=== PATIENT | female | born 1985 | race Two or more races ===

== ENCOUNTER 2024-10-14 14:53 | Emergency (ER) | payer MEDICAID, SELFPAY ==
[2024-10-14 14:54] VITALS: BMI 36.6
[2024-10-14 15:27] VITALS: BP 162/98; PULSE 83; RESP 20; TEMP 37.3; O2SAT 99
--- NOTE | 2024-10-14 15:36 | EDRME_ITS ---
Rapid Medical Screening Exam RME Arrival date/time: 10/14/24 14:53 39-year-old female with a history of hypertension, presents to the emergency room with a chief complaint of right lower quadrant and epigastric abdominal pain x 2 days I have greeted and performed a focused initial assessment of this patient. A c omprehensive ED assessment and evaluation of the patient, analysis of all test results, and completion of the medical decision making process will be conducted by additional ED providers. Chief Complaint: Abdominal Pain Vital signs: Vital Signs Temperature 99.2 F 10/14/24 15:27 Pulse Rate 83 10/14/24 15:27 Respiratory Rate 20 10/14/24 15:27 Blood Pressure 162/98 H 10/14/24 15:27 Pulse Oximetry (%) 99 10/14/24 15:27 Oxygen Delivery Method Room Air 10/14/24 15:27 Vital signs reviewed by provider: Yes
--- NOTE | 2024-10-14 15:36 | XR_ITS ---
Examination: CT abdomen and pelvis without contrast. Coronal 3-D reconstructions. Sagittal 2-D reconstructions. Date and time of exam:October 14, 2024 1729 hours INDICATIONS: Epigastric pain beginning 3 days ago CTDI: vol (mGy): 12.7 DLP: (mGycm): 638 Technique: Axial images of the abdomen have been obtained, 3 mm slice thickness Intravenous contrast material has not been administered. Low dose protocols were performed. One or more of the following dose reduction techniques were used; automated exposure control, adjustment of the mA and/or KV according to patient size, use of iterative reconstruction technique. Findings: 6 mm pulmonary nodule pleural-based right lower lobe No visualized reverse bony lesion No gallstones No pancreatic mass or peripancreatic edema Mild nodular thickening of the left adrenal gland 2 mm lower pole nonobstructing left renal calculus Normal appendix Inflammatory change with multiple lymph nodes in the pericecal region, axial image 108 24 mm umbilical hernia No bowel obstruction No diverticulitis Anteverted uterus with enlarged fundus Contracted urinary bladder with mild urinary bladder wall thickening IMPRESSION: 2 mm lower pole nonobstructing left renal calculus Normal appendix Multiple pericecal lymph nodes with inflammatory change around the cecum, differential would include inflammatory disease such as Crohn's disease ulcerative colitis, underlying early cecal tumor not excluded, recommend colonoscopy follow-up Mild cystitis pattern
[2024-10-14 16:02] LABS: Basophils % (Auto) 0 % (0-2.5); Eosinophils % (Auto) 0 % (0-10); Hematocrit 24.7 % (36.0-46.0); Immature Granulocytes % (Auto) 1 % (0-0); Immature Granulocytes Auto 0.04 Thou/mm3 (0.00-0.00); Lymphocytes # (Auto) 1.8 Thou/mm3 (1.0-4.8); Lymphocytes % (Auto) 22 % (10-50); Mean Corpuscular HGB Conc 28.3 g/dl (31.0-37.0); Mean Corpuscular Hemoglobin 15.2 pg (25.0-35.0); Mean Corpuscular Volume 54 fL (80-100); Monocytes # (Auto) 0.6 Thou/mm3 (0.0-0.8); Monocytes % (Auto) 7 % (0-12); Neutrophils # (Auto) 5.5 Thou/mm3 (1.8-7.7); Neutrophils % (Auto) 69 % (37-80); Nucleated Red Blood Cell # 0.02 Thou/mm3 (0.00-0.00); Nucleated Red Blood Cell % 0 /100 WBC (0); Platelet Count 416 Thou/mm3 (140-440); RDW Standard Deviation 44.7 fL (36.4-46.3); Red Blood Count 4.61 Miln/mm3 (4.00-5.20); White Blood Count 7.9 Thou/mm3 (3.6-11.0)
[2024-10-14 16:18] LABS: Alanine Aminotransferase 11 U/L (10-49); Albumin, Serum 4.5 gm/dL (3.5-5.0); Albumin/Globulin Ratio 1.6 (1.2-2.2); Alkaline Phosphatase 74 U/L (46-116); Anion Gap 12 (7-16); BUN/Creatinine Ratio 11 Ratio (12-20); Bilirubin,Total 0.4 mg/dL (0.3-1.2); Blood Urea Nitrogen 8 mg/dL (9-23); Calcium 8.8 mg/dL (8.3-10.6); Calcium (Corrected) 8.8 mg/dL (8.5-10.1); Carbon Dioxide 24.9 mMol/L (20.0-31.0); Chloride 103 mMol/L (98-107); Creatinine (Component) 0.7 mg/dL (0.6-1.3); Estimated Creatinine Clearance 111.9 mL/min (>60); Globulin 2.8 gm/dL (2.3-3.5); Glucose 86 mg/dL (74-106); Lipase 34 U/L (12-53); Osmolality,Calculated 276 (275-295); Potassium 3.4 mMol/L (3.4-5.1); Sodium 140 mMol/L (136-145); Total Protein 7.3 gm/dL (5.7-8.2); eGFR > 60 See Note
[2024-10-14 16:32] LABS: Collection Type, Urine Clean Catch
[2024-10-14 16:38] LABS: HCG Qualitative,Urine Negative
[2024-10-14 16:45] LABS: Bacteria,Urine 1+; Bilirubin,Urine Negative (Negative); Blood,Urine Trace (Negative); Color,Urine Yellow (Lt Yel-Yel); Glucose, Urine Negative (Negative); Hyaline Casts,Urine < 1 /hpf (0-1); Ketones,Urine Negative (Negative); Leukocyte Esterase,Urine Positive (Negative); Nitrite,Urine Positive (Negative); PH,Urine 5.5 (5.0-7.0); Protein,Urine Negative (Neg - Trace); RBC,Urine 5 /hpf (0-3); Specific Gravity,Urine 1.017 (1.001-1.035); Squamous Epithelial Cell,Urine 4 /hpf (0-5); Urobilinogen,Urine Negative mg/dL (0.0-1.0); WBC,Urine 20 /hpf (0-5)
[2024-10-14 16:50] LABS: Clarity,Urine Hazy (Clear/Hazy)
[2024-10-14 18:18] LABS: Path Review Blood Smear Sent to Pathologist
[2024-10-14 19:43] VITALS: BP 154/82; PULSE 91; RESP 16; TEMP 37.1; O2SAT 100
[2024-10-14 21:49] VITALS: BP 152/82; PULSE 83; RESP 20; TEMP 37; O2SAT 100
--- NOTE | 2024-10-14 22:53 | EKG_ITS ---
[facility] Test Date: 2024-10-14 Pat Name: REYNALDO DELGADO Department: Room: - Gender: Female [place]: : 1985 Requested By: Nehal Arzola Order Number: [id number] Reading MD: Nehal Arzola Measurements Intervals [place] Rate: 78 P: 29 MO: 138 QRS: 20 QRSD: 102 T: 31 QT: 359 QTc: 410 Interpretive Statements SINUS RHYTHM No previous ECG available for comparison /store/S0/[id number]/ecg/[id number].pdf
--- NOTE | 2024-10-14 22:56 | EDNOTE_ITS ---
ED Abdominal Pain RME/HPI General Chief Complaint: Abdominal Pain Stated complaint: ABD PAIN X3DAY Time seen by provider: 10/14/24 18:26 Arrival date/time: 10/14/24 14:53 39-year-old female with a past medical history of hypertension presents to the ED with a complaint of epigastric abdominal pain since Thursday. She states that on she has been feeling weak and fatigued. She has had some nausea but no vomiting. She has had some diarrhea but denies melena or bright red blood per rectum. She has been taking ibuprofen and Aleve for her epigastric abdominal pain. Her last menstrual period was greater than 1 month ago and she states her cycles have been heavier than normal. Source: patient Mode of arrival: ambulatory Limitations: no limitations RME / HPI RME / HPI narrative: 10/14/24 14:53 39-year-old female with a history of hypertension, presents to the emergency room with a chief complaint of right lower quadrant and epigastric abdominal pa in x 2 days I have greeted and performed a focused initial assessment of this patient. A comprehensive ED assessment and evaluation of the patient, analysis of all test results, and completion of the medical decision making process will be conducted by additional ED providers. Related Data Home Medications ?Medication ?Instructions ?Recorded ?Confirmed amlodipine 5 mg tablet 5 mg PO QDAY 10/13/22 losartan 100 mg tablet 100 mg PO QDAY 10/13/2210/31 Previous Rx's ?Medication ?Instructions ?Recorded ferrous sulfate 325 mg (65 mg 325 mg PO BID #60 tabs 0 10/15/24 iron) tablet,delayed release Allergies Allergy/AdvReac Type Severity Reaction Status Date / Time No Known Allergies Allergy Unknown Uncoded 10/14/24 14:57 Review of Systems Review of Systems Systems Reviewed: All systems reviewed, normal except as documented Past Medical History Past Medical History NEUROLOGIC: Negative Neurological Disorders or Seizures CARDIAC: Positive Cardiac Disorders and Hypertension; Negative Congestive Heart Failure RESPIRATORY: Negative Chronic Obstructive Pulmonary Disease (COPD) GASTROINTESTINAL: Negative Gastrointestinal Disorders or Hepatitis GENITOURINARY: Negative Genitourinary Disorders or Renal Disease REPRODUCTIVE: Positive Previous Pregnancies; Negative Pelvic Inflammatory Disease MUSCULOSKELETAL: Positive Musculoskeletal Disorders ENDOCRINE: Negative Endocrine Disorders or Diabetes Mellitus Type 1 HEMATOLOGIC: Positive Anemia; Negative Blood Disorders OTHER HISTORY: Positive Blood Transfusions (); Negative Autoimmune Disease, Shingles, Blood Transfusion Reaction, Anesthesia Reactions, MRSA or Cancer Family History FAMILY HISTORY: Positive Family Cardiac Disorders; Negative Family Psychiatric Problems, Family Respiratory Disorders, Family Gastrointestinal Problems, Family Cancer, Family Surgery or Family Anesthesia Reaction Surgical History SURGICAL: Positive Section Social History SMOKING STATUS: Never smoker ED Exam Narrative Physical exam: Alert and oriented 39-year-old female, no acute distress, pale conjunctiva noted. Lungs are clear, regular rate and rhythm without murmurs. Abdomen is soft and non-tender. No CVAT. General Limitations: Present no limitations Course Course Course Narrative: 39-year-old female with a past medical history of hypertension presents to the ED with a complaint of epigastric abdominal pain since Thursday. She states that on she has been feeling weak and fatigued. She has had some nausea but no vomiting. She has had some diarrhea but denies melena or bright red blood per rectum. She has been taking ibuprofen and Aleve for her epigastric abdominal pain. Her last menstrual period was greater than 1 month ago and she states her cycles have been heavier than normal. Alert and oriented 39-year-old female, no acute distress, pale conjunctiva noted. Lungs are clear, regular rate and rhythm without murmurs. Abdomen is soft and non-tender. No CVAT. Labs reveal a normal white count, H&H is low at 7.0/27.4 with normal platelets. CMP is normal. Urinalysis reveals hazy yellow urine with the specific gravity of 1.017, with positive nitrates, positive leukocyte esterase, 5 RBCs, 20 WBCs, 1+ bacteria and negative hCG. Blood bank tests reveal O+ blood with negative antibody screen. Patient was transfused with 1 unit of PRBCs. Transfusion is currently on process at the time of end of shift. Transfer of care at end of shift transferred to Dr. Mulligan. Posttransfusion CBC will be completed prior to discharge. Quality Measures none Orders Category Date Time Status Field Service Poultry Technician STAT Care 10/14/24 22:53 Active EKG (ED ONLY) *Do not use* NOW Care 10/14/24 22:53 Completed Insert IV STAT Care 10/14/24 22:53 Active NPO NOW Care 10/14/24 22:53 Active Occult Blood,Stool (Nursing) NOW Care 10/14/24 22:55 Active Transfuse,blood/blood products ONCE Care 10/14/24 22:[address] abdomen pelvis wo con Stat Exams 10/14/24 15:36 Completed EKG (ED Only) Stat Exams 10/14/24 22:53 Draft CBC Auto Diff Post-Transfusion Routine Lab 10/14/24 22:53 Ordered CBC Stat Lab 10/14/24 15:50 Completed CMP [Comprehensive Metabolic Panel] Stat Lab 10/14/24 15:50 Completed HCG Qualitative,Urine Stat Lab 10/14/24 16:00 Completed Lipase Stat Lab 10/14/24 15:50 Completed Path Review Blood Smear Stat Lab 10/14/24 15:50 Completed Type and Screen Stat Lab 10/14/24 23:50 Results UA [Urinalysis] Stat Lab 10/14/24 16:00 Completed Urine Culture Stat Lab 10/14/24 16:00 Received prbc [Red Blood Cells] Stat Lab 10/14/24 23:50 Results Acetaminophen Tab [Tylenol Tab] Med 10/14/24 22:53 Discontinued 650 mg PO X1 ONE DiphenhydrAMINE [Benadryl] Med 10/14/24 22:53 Discontinued 25 mg PO X1 ONE Famotidine Inj [Pepcid Inj] Med 10/14/24 22:58 Discontinued 20 mg IVP X1 ONE Furosemide [Lasix Inj] Med 10/14/24 22:53 Discontinued 40 mg IVP X1 ONE Pantoprazole Inj [Protonix Inj] Med 10/14/24 22:58 Discontinued 40 mg IVP X1 ONE Vital Signs Vital signs: Vital Signs Temperature 99.2 F 10/14/24 15:27 Pulse Rate 83 10/14/24 15:27 Respiratory Rate 20 10/14/24 15:27 Blood Pressure 162/98 H 10/14/24 15:27 Pulse Oximetry (%) 99 10/14/24 15:27 Oxygen Delivery Method Room Air 10/14/24 15:27 Abdominal Pain MDM MDM Narrative MDM Narrative:: 39-year-old female with a past medical history of hypertension presents to the ED with a complaint of epigastric abdominal pain since Thursday. She states t hat on she has been feeling weak and fatigued. She has had some nausea but no vomiting. She has had some diarrhea but denies melena or bright red blood per rectum. She has been taking ibuprofen and Aleve for her epigastric abdominal pain. Her last menstrual period was greater than 1 month ago and she states her cycles have been heavier than normal. Alert and oriented 39-year-old female, no acute distress, pale conjunctiva noted. Lungs are clear, regular rate and rhythm without murmurs. Abdomen is soft and non-tender. No CVAT. Labs reveal a normal white count, H&H is low at 7.0/27.4 with normal platelets. CMP is normal. Urinalysis reveals hazy yellow urine with the specific gravity of 1.017, with positive nitrates, positive leukocyte esterase, 5 RBCs, 20 WBCs, 1+ bacteria and negative hCG. Blood bank tests reveal O+ blood with negative antibody screen. Patient was transfused with 1 unit of PRBCs. Transfusion is currently in process at the time of end of shift. Transfer of care at end of shift transferred to Dr. Mulligan. Posttransfusion CBC will be completed prior to discharge. Patient data External records reviewed:: None Clinical information provided by:: patient Social determinants that could affect healthcare access:: none Patient has the following chronic illnesses:: Hypertension How is presenting disease/condition affected by chronic disease/condition?: uneffected by Evaluation data The following diagnostics were reviewed and interpreted by me:: lab results Lab and/or radiology exams considered but not ordered:: N/A Interpretation Summary: Labs reveal a normal white count, H&H is low at 7.0/27.4 with normal platelets. CMP is normal. Urinalysis reveals hazy yellow urine with the specific gravity of 1.017, with positive nitrates, positive leukocyte esterase, 5 RBCs, 20 WBCs, 1+ bacteria and negative hCG. Blood bank tests reveal O+ blood with negative antibody screen. Medications / Prescriptions Medications or Prescriptions considered but not ordered:: N/A Medication administrations:: Medication Administration History Discontinued Medications Acetaminophen (Acetaminophen 325 Mg Tablet) 650 mg PO X1 ONE Stop: 10/14/24 22:54 Last Admin: 10/15/24 00:12 Dose: Not Given Documented By: ISIDRO Non-Admin Reason: Patient Refused Comments: pt denies any pain Diphenhydramine HCl (Diphenhydramine 25 Mg Capsule) 25 mg PO X1 ONE Stop: 10/14/24 22:54 Famotidine (Famotidine Inj 10 Mg/Ml Vial 2 Ml) 20 mg IVP X1 ONE Stop: 10/14/24 22:59 Furosemide (Furosemide Inj 10 Mg/Ml Vial 2 Ml) 40 mg IVP X1 ONE Stop: 10/14/24 22:54 Last Admin: 10/15/24 00:10 Dose: Not Given Documented By: ISIDRO Non-Admin Reason: Other, see note Comments: per dr. mulligan do not need to give Pantoprazole Sodium (Pantoprazole Inj 40 Mg Vial) 40 mg IVP X1 ONE Stop: 10/14/24 22:59 Diphenhydramine 25 mg p.o., famotidine 20 mg IVP, pantoprazole 40 mg IVP Consultations Consultation(s) initiated? (list below): No Diagnosis Differential diagnosis abdominal pain: abdominal pain, gastroenteritis and other (GERD, peptic ulcer disease, acute blood loss anemia, iron deficiency anemia) Most likely diagnosis given after review of the tests above:: Epigastric abdominal pain, anemia Admission Indicated Admission indicated?: not indicated Admission Request Was there a request for admission?: No Disposition Plan Disposition Plan: Discharge Discharge Attestation Discharge Attestation: The patient and all family members were given an opportunity to ask questions and understood the discharge instructions. Discharge instructions specifically effects, indications for sooner follow up or return to the emergency department, and the expected course of current diagnosis. Patient condition: Stable Discharge Plan Plan Patient Disposition: HOME (Self Care) Discharge Disposition comment: Stable Prescriptions/Referrals Prescriptions/Med Rec: New ferrous sulfate 325 mg (65 mg iron) tablet,delayed release (DR/EC) 325 mg PO BID Qty: 60 0RF No Action amlodipine 5 mg Tablet 5 mg PO QDAY losartan 100 mg Tablet 100 mg PO QDAY Referrals: No Primary/Family,Physician [Primary Care Provider] - In 1 week Problem List Clinical Impression: Anemia, Gastritis Patient/Caregiver Discharge Instructions Education Materials: ED Anemia Type Not Specified, ED PEPTIC ULCER vs GASTRITIS Additional Instructions: Follow-up with your primary care physician in 24 to 48 hours. Return to the ED for any new or worsening symptoms. Print Language: Telugu Stand Alone Forms: [employer] Award Info., Patient Portal Info Letter PA/DIRECTOR ENERGY Supervising Physician PA/ELAINE Supervising Physician: Dr Mulligan
[2024-10-15] VITALS (8 sets, daily range): BP systolic 142–172; BP diastolic 76–101; PULSE 70–98; RESP 16–18; TEMP 36.7–36.8; O2SAT 97–100
--- NOTE | 2024-10-15 00:13 | PC.NURSE ---
pt alert and oriented complaints of upper abdominal pain and headache. currently denies any pain or n/v at this time. pt reports feeling weak and fatigued past 2 days. reports history of high blood pressure, takes medication. pt reports last transfusion was in 2019 when she delivered her baby. denies any active bleeding. reports history of heavy periods.
[2024-10-15] MEDS: FAMOTIDINE INJ 10 MG/ML VIAL 2 ML 20 MG IVP (02:33)
[2024-10-15] MEDS: PANTOPRAZOLE INJ 40 MG VIAL IVP (02:37)
--- NOTE | 2024-10-15 03:26 | EDNOTE_ITS ---
Emergency Room Addendum <Nohemi Irby - Last Filed: 10/15/24 04:05> Addendum Narrative: I took over the care from previous shift physician at 3 AM on 10/15/2024. See previous notes for complete H & P and ED course. I reviewed all diagnostic test results. My interpretation of the EKG is My review of the CT report is 2 mm lower pole nonobstructing left renal calculus. Normal appendix. Multiple pericecal lymph nodes with inflammatory change around the cecum, differential would include inflammatory disease such as Crohn's disease ulcerative colitis, underlying early cecal tumor not excluded, recommend colonoscopy follow-up. Mild cystitis pattern. Blood tests and urine tests Occult Blood (Gastric): Rectal exam performed with female gymnastic coach present at bedside. Diagnoses include: Treatment here included Rocephin, Protonix, Benadryl, Tylenol, Pepcid, Lasix. Not yet done: I discussed the case with our hospitalist. About the presentation and exam and diagnostics and treatments here. And need of further care in the hospital. Will accept the patient. Not yet done: Based on my best medical judgment, made decision no further evaluation or treatment indicated at this time. Patient understands and agrees to the discharge instructions customized and printed, see below. Pieter Bennett MD <Pieter Bennett MD - Last Filed: 10/15/24 04:35> Addendum Narrative: I took over the care from Nehal Elise at 3 AM on 10/15/2024. See previous notes for complete H & P and ED course. I reviewed all diagnostic test results. Remarkable for severe anemia and UTI and negative Stool occult blood negative. Rectal exam performed with female gymnastic coach present at bedside. Diagnoses include: Severe anemia of unclear etiology and UTI. Treatment here included blood transfusion and Rocephin. Recommended more outpatient workup. Based on my best medical judgment, made decision no further evaluation or dayo tment indicated at this time. Patient understands and agrees to the discharge instructions customized and printed, see below. Discharge Instructions from Dr. Bennett printed for you: 1. After evaluation, your red blood cell count was severely low needing blood transfusion. 2. Your body needs iron to make red blood cells which take 3 months. So take iron pills as prescribed. And increase food rich in iron, such as red meat and egg yolks and seaweed. 3. For urinary tract infection, take cefdinir as prescribed. For good hydration, increase oral fluid and maintain clear urine. If dark or yellow, increase oral fluid. 4. See a private doctor on 10/17/2024 for recheck and further care. Ask to review all test results and official radiology reports, to make sure you receive all necessary follow-ups and monitoring. Ask for help finding the cause and treatment of your severe anemia. To make sure there is no serious intra-abdominal condition, ask for help with more investigation not available here in the ER. Such as EGD or scoping the stomach, colonoscopy or scoping the colon, and referral to see blast furnace operator. Ask for a referral to see lining cutter as well. 5. Seek immediate medical care with worsening or with any concerns. Pieter Bennett MD
[2024-10-15 04:27] LABS: OBS Developer Lot # 4-24 551749; OBS Performed By malia; OBS QC OK? Yes; Occult Blood, Stool Negative (Negative)
[2024-10-15] MEDS: cefTRIAXone/D5w 1gm IV premix 1 GM/50 ML BAG IV (06:09)
[2024-10-15 07:03] LABS: Basophils % (Auto) 1 % (0-2.5); Eosinophils # (Auto) 0.1 Thou/mm3 (0.0-0.5); Eosinophils % (Auto) 1 % (0-10); Hematocrit 28.4 % (36.0-46.0); Immature Granulocytes % (Auto) 1 % (0-0); Immature Granulocytes Auto 0.03 Thou/mm3 (0.00-0.00); Lymphocytes # (Auto) 1.7 Thou/mm3 (1.0-4.8); Lymphocytes % (Auto) 29 % (10-50); Mean Corpuscular HGB Conc 28.2 g/dl (31.0-37.0); Mean Corpuscular Hemoglobin 16.6 pg (25.0-35.0); Mean Corpuscular Volume 59 fL (80-100); Monocytes # (Auto) 0.6 Thou/mm3 (0.0-0.8); Monocytes % (Auto) 11 % (0-12); Neutrophils # (Auto) 3.4 Thou/mm3 (1.8-7.7); Neutrophils % (Auto) 58 % (37-80); Nucleated Red Blood Cell % 0 /100 WBC (0); Platelet Count 421 Thou/mm3 (140-440); RDW Standard Deviation 54.9 fL (36.4-46.3); Red Blood Count 4.82 Miln/mm3 (4.00-5.20); White Blood Count 5.9 Thou/mm3 (3.6-11.0)
== END 2024-10-15 06:45 | disposition home or self-care (01) ==
PROVIDERS: Nurse Practitioner Family; Physician Assistant; Emergency Provider Emergency Medicine
DX: D64.9 Anemia, unspecified (principal); K29.70 Gastritis, unspecified, without bleeding; N20.0 Calculus of kidney; N39.0 Urinary tract infection, site not specified; I10 Essential (primary) hypertension; K63.89 Other specified diseases of intestine
CPT/HCPCS: 36415; 36430; 74176; 80053; 81001; 81025; 82270; 83690; 85025; 86850; 86900; 86901; 86923; 87077; 87086; 87186; 93005; 96365; 96375; 99285; J0696; J2470; J3490; P9016

== ENCOUNTER 2025-02-08 17:01 | Emergency (ER) | payer MEDICAID, SELFPAY ==
[2025-02-08] VITALS (10 sets, daily range): BP systolic 152–189; BP diastolic 72–97; PULSE 64–94; RESP 16–18; TEMP 36.6–36.9; O2SAT 97–100; BMI 34.9
--- NOTE | 2025-02-08 17:19 | XR_ITS ---
Examination: Pelvic ultrasound, transabdominal, complete Technique: Transabdominal ultrasound of the pelvis performed using grayscale imaging Date and time of exam: February 08, 2025, 1741 hrs. Indications: Irregular vaginal bleeding for months with low hemoglobin, anemia Findings: Uterus 9.7 cm, uterine fundal mass 3.7 x 3.2 x 3.6 cm with irregular margins Endometrial stripe 1.0 cm Right ovary 2.8 cm arterial flow Left ovary 3.6 cm arterial flow 27 x 21 mm cyst Impression: Uterine fundal mass with irregular margins, 3.7 x 3.2 x 3.6 cm, recommend MRI pelvis follow-up, pre and postcontrast, to exclude malignant neoplasm of the uterine fundus Left ovarian simple cyst 27 x 18 x 21 mm
--- NOTE | 2025-02-08 17:22 | PD.EDRME ---
Rapid Medical Screening Exam RME Arrival date/time: 02/08/25 17:01 39-year-old female presents to the Emergency Department for complaints of low hemoglobin patient does report that she has heavy periods monthly patient reports per her doctor her hemoglobin was 6.5 Chief Complaint: Recheck/Abnormal Lab/Rx Vital signs: Vital Signs Temperature 98.5 F 02/08/25 17:09 Pulse Rate 94 02/08/25 17:09 Respiratory Rate 18 02/08/25 17:09 Blood Pressure 167/79 H 02/08/25 17:09 Pulse Oximetry (%) 98 02/08/25 17:09 Oxygen Delivery Method Room Air 02/08/25 17:09
[2025-02-08 17:50] LABS: Basophils # (Auto) 0.1 Thou/mm3 (0.0-0.2); Basophils % (Auto) 1 % (0-2.5); Eosinophils # (Auto) 0.3 Thou/mm3 (0.0-0.5); Eosinophils % (Auto) 3 % (0-10); Hematocrit 21.7 % (36.0-46.0); Immature Granulocytes Auto 0.18 Thou/mm3 (0.00-0.00); Lymphocytes # (Auto) 3.0 Thou/mm3 (1.0-4.8); Lymphocytes % (Auto) 29 % (10-50); Mean Corpuscular HGB Conc 29.0 g/dl (31.0-37.0); Mean Corpuscular Hemoglobin 21.4 pg (25.0-35.0); Mean Corpuscular Volume 74 fL (80-100); Monocytes # (Auto) 0.7 Thou/mm3 (0.0-0.8); Monocytes % (Auto) 7 % (0-12); Neutrophils # (Auto) 6.3 Thou/mm3 (1.8-7.7); Neutrophils % (Auto) 60 % (37-80); Nucleated Red Blood Cell # 0.10 Thou/mm3 (0.00-0.00); Nucleated Red Blood Cell % 1 /100 WBC (0); Platelet Count 521 Thou/mm3 (140-440); RDW Standard Deviation 57.9 fL (36.4-46.3); Red Blood Count 2.94 Miln/mm3 (4.00-5.20); White Blood Count 10.6 Thou/mm3 (3.6-11.0)
[2025-02-08 17:55] LABS: Hemoglobin 6.3 g/dL (12.0-16.0)
[2025-02-08 18:05] LABS: INR 0.9 (0.9-1.3); Partial Thromboplastin Time 23.4 Seconds (22.0-36.0); Prothrombin Time 10.1 Seconds (9.0-12.2)
[2025-02-08 18:06] LABS: HCG,Qualitative Serum Negative
[2025-02-08 18:55] LABS: Albumin, Serum 4.2 gm/dL (3.5-5.0); Albumin/Globulin Ratio 1.8 (1.2-2.2); Alkaline Phosphatase 76 U/L (46-116); Anion Gap 10 (7-16); Aspartate Amino Transferase 11 U/L (0-34); BUN/Creatinine Ratio 13 Ratio (12-20); Bilirubin,Total 0.2 mg/dL (0.3-1.2); Blood Urea Nitrogen 8 mg/dL (9-23); Calcium 8.8 mg/dL (8.3-10.6); Calcium (Corrected) 8.8 mg/dL (8.5-10.1); Carbon Dioxide 23.5 mMol/L (20.0-31.0); Chloride 108 mMol/L (98-107); Creatinine (Component) 0.6 mg/dL (0.6-1.3); Estimated Creatinine Clearance 137.2 mL/min (>60); Globulin 2.4 gm/dL (2.3-3.5); Glucose 109 mg/dL (74-106); Osmolality,Calculated 280 (275-295); Potassium 3.4 mMol/L (3.4-5.1); Sodium 141 mMol/L (136-145); Total Protein 6.6 gm/dL (5.7-8.2); eGFR > 60 See Note
--- NOTE | 2025-02-08 19:08 | PD.EDRECHK ---
ED Recheck Abnl Lab Rx-RME/HPI General Chief Complaint: Recheck/Abnormal Lab/Rx Stated Complaint: HGB LOW Time Seen by Provider: 02/08/25 18:59 Arrival date/time: 02/08/25 17:01 Limitations: no limitations RME / HPI RME / HPI narrative: 02/08/25 17:01 39-year-old female presents to the Emergency Department for complaints of low hemoglobin patient does report that she has heavy periods monthly patient reports per her doctor her hemoglobin was 6.[address] Tobar's Main ED Evaluation: 39yo female presents to the ED after being sent over by her PCP. Patient had outpatient labs done yesterday and received a call today stating her hemoglobin was low, so she was sent over for evaluation. Patient states she's been having abnormal vaginal bleeding for the last few months. She reports feeling generally weak, fatigued, and gets short of breath on exertion. Patient denies any chest pain, abdominal pain, back pain, or any other associated symptoms. NKA. Patient does not have a PCP. Related Data Home Medications ?Medication ?Instructions ?Recorded ?Confirmed amlodipine 5 mg tablet 5 mg PO QDAY 10/13/22 10/14/22 losartan 100 mg tablet 100 mg PO QDAY 10/13/22 10/14/22 Previous Rx's ?Medication ?Instructions ?Recorded cefdinir 300 mg capsule 300 mg PO BID #14 caps 10/15/24 ferrous sulfate 325 mg (65 mg 325 mg PO TID #90 tabs 10/15/24 iron) tablet ferrous sulfate 325 mg (65 mg 325 mg PO BID #60 tabs 10/15/24 iron) tablet,delayed release Allergies Allergy/AdvReac Type Severity Reaction Status Date / Time No Known Allergies Allergy Unknown Uncoded 10/14/24 14:57 Review of Systems Review of Systems Systems Reviewed: All systems reviewed, normal except as documented Past Medical History Past Medical History NEUROLOGIC: Negative Neurological Disorders or Seizures CARDIAC: Positive Cardiac Disorders and Hypertension; Negative Congestive Heart Failure RESPIRATORY: Negative Chronic Obstructive Pulmonary Disease (COPD) GASTROINTESTINAL: Negative Gastrointestinal Disorders or Hepatitis GENITOURINARY: Negative Genitourinary Disorders or Renal Disease REPRODUCTIVE: Positive Previous Pregnancies; Negative Pelvic Inflammatory Disease MUSCULOSKELETAL: Positive Musculoskeletal Disorders ENDOCRINE: Negative Endocrine Disorders or Diabetes Mellitus Type 1 HEMATOLOGIC: Positive Anemia; Negative Blood Disorders OTHER HISTORY: Positive Blood Transfusions (); Negative Autoimmune Disease, Shingles, Blood Transfusion Reaction, Anesthesia Reactions, MRSA or Cancer Family History FAMILY HISTORY: Positive Family Cardiac Disorders; Negative Family Psychiatric Problems, Family Respiratory Disorders, Family Gastrointestinal Problems, Family Cancer, Family Surgery or Family Anesthesia Reaction Surgical History SURGICAL: Positive Section Social History SMOKING STATUS: Never smoker ED Exam General Limitations: Present no limitations General appearance: Present alert and in no apparent distress Head Head exam: Present atraumatic Eye Eye exam: Present normal appearance, PERRL and EOMI ENT ENT exam: Present normal exam, normal oropharynx and mucous membranes moist Neck Neck exam: Present normal inspection, full ROM and trachea midline Chest Chest inspection: Present normal inspection and symmetric chest wall rise Respiratory Respiratory exam: Present normal lung sounds bilaterally; Absent accessory muscle use Cardiovascular Cardiovascular exam: Present regular rate, normal rhythm and normal heart sounds Abdominal Exam Abdominal exam: Present soft and normal bowel sounds Extremities Exam Extremities exam: Present normal inspection and full ROM Back Exam Back exam: Present normal inspection and full ROM Neurological Exam Neurological exam: Present alert, oriented X3 and CN II-XII intact Psychiatric Psychiatric exam: Present normal affect and normal mood Skin Skin exam: Present warm, dry, intact and normal color Course Course Course Narrative: Risks versus benefits were discussed with the patient regarding blood transfusion, including possible allergic reaction. Patient was given the opportunity to ask any questions and she consented to receiving blood. Quality Measures none Orders Category Date Time Status CT Screening NOW Care 02/08/25 21:01 Completed MRI Screening NOW Care 02/09/25 02:41 Active Transfuse,blood/blood products NEEDED Care 02/08/25 19:16 Active MR pelvis wo/w con Stat Exams 02/09/25 Ordered US pelvic complete Stat Exams 02/08/25 17:19 Completed CBC Stat Lab 02/08/25 17:25 Completed Comprehensive Metabolic Panel Stat Lab 02/08/25 17:25 Completed HCG,Qualitative Serum Stat Lab 02/08/25 17:25 Completed Partial Thromboplastin Time Stat Lab 02/08/25 17:25 Completed Prothrombin Time with INR Stat Lab 02/08/25 17:25 Completed Red Blood Cells Stat Lab 02/08/25 17:25 Completed Type and Screen Stat Lab 02/08/25 17:25 Completed Vital Signs Vital signs: Vital Signs Temperature 98.5 F 02/08/25 17:09 Pulse Rate 94 02/08/25 17:09 Respiratory Rate 18 02/08/25 17:09 Blood Pressure 167/79 H 02/08/25 17:09 Pulse Oximetry (%) 98 02/08/25 17:09 Oxygen Delivery Method Room Air 02/08/25 17:09 Recheck / Abnormal Lab / Rx MDM Narrative MDM Narrative:: Scribe Attestation: 02/08/25 - Ameena Rodriguez am scribing for and in the presence of Dr. Tobar. Patient data External records reviewed:: [facility] previous records (Per chart review, patient was seen here on 10/14/24 for anemia.) Clinical information provided by:: patient Social determinants that could affect healthcare access:: none Patient has the following chronic illnesses:: HTN, anemia How is presenting disease/condition affected by chronic disease/condition?: caused by Evaluation data The following diagnostics were reviewed and interpreted by me:: lab results and radiology exam(s) Lab and/or radiology exams considered but not ordered:: none Interpretation Summary: Hgb low at 6.3, Hct 21.7, Plt 521, PT/INR/PTT normal, CMP normal. [facility] Report Signed Patient: REYNALDO DELGADO. Record#: [id number] Birthdate: 1985 Age/Sex: 39 / F Location: [facility] Attending Dr: Ordering Physician: Matt VOGEL)Dax NP Date of Service: 02/08/25 Procedure(s): US pelvic complete Accession Number(s): [id number] cc: Matt VOGEL)Dax NP; Pascual Isidro MD; Niko Teixeira MD~ Examination: Pelvic ultrasound, transabdominal, complete Technique: Transabdominal ultrasound of the pelvis performed using grayscale imaging Date and time of exam: February 08, 2025, 1741 hrs. Indications: Irregular vaginal bleeding for months with low hemoglobin, anemia Findings: Uterus 9.7 cm, uterine fundal mass 3.7 x 3.2 x 3.6 cm with irregular margins Endometrial stripe 1.0 cm Right ovary 2.8 cm arterial flow Left ovary 3.6 cm arterial flow 27 x 21 mm cyst Impression: Uterine fundal mass with irregular margins, 3.7 x 3.2 x 3.6 cm, recommend MRI pelvis follow-up, pre and postcontrast, to exclude malignant neoplasm of the uterine fundus Left ovarian simple cyst 27 x 18 x 21 mm Dictated By: Niko Teixeira MD Signed By <Electronically signed by Niko Teixeira MD in [place]> 02/08/25 0712 Medications / Prescriptions Medications or Prescriptions considered but not ordered:: none Medication administrations:: 2 units pRBCs Consultations Consultation(s) initiated? (list below): No Diagnosis Recheck Differential Diagnosis: other (acute on chronic anemia, dysfunctional uterine bleeding, vaginal bleeding) Most likely diagnosis given after review of the tests above:: see clinical impression below Admission Indicated Admission indicated?: not indicated Admission Request Was there a request for admission?: No Disposition Plan Disposition Plan: other (specify) (Signed out to Dr. Carbone at 6 AM pending MRI.) Discharge Plan Prescriptions/Referrals Prescriptions/Med Rec: No Action ferrous sulfate 325 mg (65 mg iron) tablet,delayed release (DR/EC) 325 mg PO BID Qty: 60 0RF cefdinir 300 mg capsule 300 mg PO BID Qty: 14 0RF ferrous sulfate 325 mg (65 mg iron) tablet 325 mg PO TID Qty: 90 1RF amlodipine 5 mg Tablet 5 mg PO QDAY losartan 100 mg Tablet 100 mg PO QDAY Referrals: Pascual Isidro MD [Primary Care Provider, Family Practice] - In 1 week Problem List Clinical Impression: Pelvic mass, Symptomatic anemia, Abnormal vaginal bleeding Patient/Caregiver Discharge Instructions Print Language: Turkmen
[2025-02-08 19:11] LABS: Alanine Aminotransferase 9 U/L (10-49)
[2025-02-09] VITALS (8 sets, daily range): BP systolic 134–166; BP diastolic 66–90; PULSE 58–78; RESP 12–20; TEMP 36.6–36.8; O2SAT 98–99
--- NOTE | 2025-02-09 | XR_ITS ---
Examination: MRI pelvis with intravenous contrast. MRI pelvis without intravenous contrast. Date and time of exam: February 09, 2025, 1132 hours INDICATIONS: Irregular vaginal bleeding for months, uterine fundal mass 3.7 x 3.2 x 3.6 cm with irregular margins on pelvic sonogram February 08, 2025 1741 hours Technique: Multiple axial, sagittal and coronal sections of the pelvis obtained. Transverse images, TR 6020, TE 107. T1 weighted transverse images, TR 582, TE 9.5. T2-weighted sagittal images, TR 4000, TE 105. T2-weighted sagittal images, TR 4000, TE 5. Coronal images, TR 4210, TE 107. Axial and coronal images are obtained post 18 cc intravenous injection, gadolinium. Findings: Uterus 10 x 4 x 3.5 cm Uterine fundal mass which appears circumscribed on this study, 3.7 x 3.6 cm The mass demonstrates mild diffuse enhancement on the postcontrast images 28 mm left ovarian cyst IMPRESSION: Circumscribed uterine fundal mass with mild diffuse enhancement on the postcontrast images, 3.7 x 3.6 cm, favoring benign uterine area of fibroid degeneration Recommend 6 month follow-up transvaginal pelvic sonography
[2025-02-09 06:16] LABS: Basophils # (Auto) 0.1 Thou/mm3 (0.0-0.2); Basophils % (Auto) 1 % (0-2.5); Eosinophils # (Auto) 0.2 Thou/mm3 (0.0-0.5); Eosinophils % (Auto) 3 % (0-10); Hematocrit 30.5 % (36.0-46.0); Hemoglobin 9.4 g/dL (12.0-16.0); Immature Granulocytes Auto 0.11 Thou/mm3 (0.00-0.00); Lymphocytes # (Auto) 2.2 Thou/mm3 (1.0-4.8); Lymphocytes % (Auto) 28 % (10-50); Mean Corpuscular HGB Conc 30.8 g/dl (31.0-37.0); Mean Corpuscular Hemoglobin 23.3 pg (25.0-35.0); Mean Corpuscular Volume 76 fL (80-100); Monocytes # (Auto) 0.6 Thou/mm3 (0.0-0.8); Monocytes % (Auto) 7 % (0-12); Neutrophils # (Auto) 4.7 Thou/mm3 (1.8-7.7); Neutrophils % (Auto) 59 % (37-80); Nucleated Red Blood Cell # 0.04 Thou/mm3 (0.00-0.00); Nucleated Red Blood Cell % 1 /100 WBC (0); Platelet Count 421 Thou/mm3 (140-440); RDW Standard Deviation 55.8 fL (36.4-46.3); Red Blood Count 4.04 Miln/mm3 (4.00-5.20); White Blood Count 7.9 Thou/mm3 (3.6-11.0)
--- NOTE | 2025-02-09 12:30 | PD.EDADDENDU ---
Emergency Room Addendum Addendum Narrative: 0600: Care assumed from Dr. Solomon, the previous shift emergency physician. Past medical, surgical, social and family history reviewed. Vitals and home medications reviewed. I will assume the care of the patient at this time, pending MRI and final disposition. Please refer to the emergency department record for history and examination from initial visit.?The following addendum documentation note is intended to reflect any pending information, findings, or radiology results not included in the patient?s initial chart. MRI of pelvis today shows Circumscribed uterine fundal mass with mild diffuse enhancement on the postcontrast images, 3.7 x 3.6 cm, favoring benign uterine area of fibroid degeneration. Recommend 6 month follow-up transvaginal pelvic sonography Repeat H/H 9.4/30.5. Patient has remained stable through ED course. Will DC home.
== END 2025-02-09 14:18 | disposition home or self-care (01) ==
PROVIDERS: Nurse Practitioner Primary Care; Emergency Provider Emergency Medicine; PCP Family Medicine
DX: D64.9 Anemia, unspecified (principal); N83.292 Other ovarian cyst, left side; N92.0 Excessive and frequent menstruation with regular cycle; I10 Essential (primary) hypertension
CPT/HCPCS: 36415; 36430; 72197; 76856; 80053; 84703; 85025; 85610; 85730; 86850; 86900; 86901; 86923; 99285; A9577; P9016